=== PATIENT | male | born 1975 | race Caucasian/White ===

== ENCOUNTER 2017-10-13 22:55 | Emergency (ER) | payer SELFPAY ==
--- NOTE | 2017-10-13 23:33 | ER Document Report ---
ED Medical Screen (RME) - General Chief Complaint: S/S of Possible Stroke Stated Complaint: HEADACHE, RIGHT SIDE MOUTH NUMBNESS Time Seen by Provider: 10/13/17 23:30 Notes: 42 yo male who presents with 2 hours of a right facial droop and numbness with a dull right-sided headache. He has never had this before. Denies tick bites, rash, fevers, arm or leg weakness or numbness, ataxia or sensory loss. PE: Partial right facial droop. Able to wrinkle forehead. I have greeted and performed a rapid initial assessment of this patient. A comprehensive ED assessment and evaluation of the patient, analysis of test results and completion of the medical decision making process will be conducted by additional ED providers. TRAVEL OUTSIDE OF THE [place] IN LAST 30 DAYS: No
[2017-10-13] MEDS ORDERED: ESMOLOL HCL/SOD CL 2,500 MG/250 ML RTUINJ IV PRN (23:41)
[2017-10-13 23:50] LABS: PROTHROMBIN TIME 10.5 SEC (11.4-15.4)
[2017-10-13 23:51] LABS: PARTIAL THROMBOPLASTIN TIME 28.4 SEC (23.5-35.8)
--- NOTE | 2017-10-13 23:54 | RADIOLOGY REPORT (SQ) ---
EXAM DESCRIPTION: CT HEAD WITHOUT COMPLETED DATE/TIME: 10/13/2017 11:44 pm REASON FOR STUDY: right facial droop, able to wrinkle forehead COMPARISON: None. TECHNIQUE: Axial images acquired through the brain without intravenous contrast. Images reviewed wi th bone, brain and subdural windows. Images stored on PACS. All CT scanners at this facility use dose modulation, iterative reconstruction, and/or weight based d osing when appropriate to reduce radiation dose to as low as reasonably achievable (ALARA). [facility]: Dose Right [facility]: CareDose [facility]: Dose Right [facility]: Teradose 4D [facility]: Medaxion RADIATION DOSE: CT Rad equipment meets quality standard of care and radiation dose reduction techniq ues were employed. CTDIvol: 64.6 mGy. DLP: 1163 mGy-cm. mGy. LIMITATIONS: None. FINDINGS: VENTRICLES: Normal size and contour. CEREBRUM: No masses. No hemorrhage. No midline shift. No evidence for acute infarction. Normal gra y/white matter differentiation. No areas of low density in the white matter. CEREBELLUM: No masses. No hemorrhage. No alteration of density. No evidence for acute infarction. EXTRAAXIAL SPACES: No fluid collections. No masses. ORBITS AND GLOBE: No intra- or extraconal masses. Normal contour of globe without masses. CALVARIUM: No fracture. PARANASAL SINUSES: No fluid or mucosal thickening. SOFT TISSUES: No mass or hematoma. OTHER: No other significant finding. IMPRESSION: NORMAL BRAIN CT WITHOUT CONTRAST. EVIDENCE OF ACUTE STROKE: NO. COMMENT: Quality ID # [id number]: Final reports with documentation of one or more dose reduction techniques (e.g., Automated exposure control, adjustment of the mA and/or kV according to patient size, use of iterative reconstruction technique) TECHNICAL DOCUMENTATION: JOB ID: [id number]- All Rights Reserved
[2017-10-14 00:10] LABS: ABSOLUTE BASOPHILS # (AUTO) 0.1 10^3/uL (0.0-0.2); ABSOLUTE EOSINOPHILS # (AUTO) 0.1 10^3/uL (0.0-0.6); ABSOLUTE LYMPHOCYTES (AUTO) 2.9 10^3/uL (0.5-4.7); ABSOLUTE MONOCYTES (AUTO) 0.4 10^3/uL (0.1-1.4); ABSOLUTE NEUT (AUTO) 2.7 10^3/uL (1.7-8.2); BASOPHILS % (AUTO) 0.9 % (0-2); EOSINOPHILS % (AUTO) 1.7 % (0-6); HEMATOCRIT 44.1 % (37.9-51.0); LYMPHOCYTES % (AUTO) 46.6 % (13-45); MEAN CORPUSCULAR VOLUME 81 fl (80-97); MONOCYTES % (AUTO) 6.9 % (3-13); PLATELET COUNT 202 10^3/uL (150-450); RED BLOOD COUNT 5.45 10^6/uL (4.35-5.55); RED CELL DISTRIBUTION WIDTH 14.5 % (11.5-14.0); SEGMENTED NEUTROPHILS % (AUTO) 43.9 % (42-78); TOTAL CELLS COUNTED % (AUTO) 100 %; WHITE BLOOD COUNT 6.1 10^3/uL (4.0-10.5)
[2017-10-14 00:11] LABS: CALCIUM 9.6 mg/dL (8.4-10.2)
[2017-10-14 00:12] LABS: BLOOD UREA NITROGEN 14 mg/dL (7-20); CARBON DIOXIDE 23 mmol/L (22-30); CHLORIDE 98 mmol/L (98-107); GLUCOSE 255 mg/dL (75-110); POTASSIUM 4.5 mmol/L (3.6-5.0)
[2017-10-14 00:13] LABS: ALANINE AMINOTRANSFERASE 39 U/L (21-72); ALBUMIN 4.3 g/dL (3.5-5.0); ALKALINE PHOSPHATASE 79 U/L (38-126); ANION GAP 13 (5-19); ASPARTATE AMINO TRANSFERASE 50 U/L (17-59); BILIRUBIN,TOTAL 1.3 mg/dL (0.2-1.3)
[2017-10-14 00:14] LABS: CREATINE KINASE 66 U/L (55-170); TOTAL PROTEIN 7.4 g/dL (6.3-8.2)
[2017-10-14 00:20] LABS: HEMOGLOBIN 14.8 g/dL (13.5-17.0)
[2017-10-14 00:21] LABS: MEAN CORPUSCULAR HEMOGLOBIN 27.2 pg (27.0-33.4); MEAN CORPUSCULAR HGB CONC 33.5 g/dL (32.0-36.0)
--- NOTE | 2017-10-14 00:31 | ER Document Report ---
ED Neuro Symptoms/Deficit - General Mode of Arrival: Ambulatory Information source: Patient Notes: 42 year old male with history of diabetes with neuropathy, hypertension, and hyperlipidemia presents to the ED complaining of a headache that started a few days ago. Patient then developed decreased taste a few days ago in addition to his headache and then noticed right sided facial droop earlier this evening while brushing his teeth. Patient also notes having difficulty biting into his sandwich earlier this evening. Patient spoke with his who is a nurse and told him to come to the ED. Patient denies blurred vision, weakness, difficulty walking, or slurred speech. Patient reports bilateral lower extremity pain, but states this is not new. TRAVEL OUTSIDE OF THE [place] IN LAST 30 DAYS: No - HPI Patient complains to provider of: Facial Droop - right Onset: This evening Loss of consciousness: No loss of consciousness Was STROKE ALERT Called: Yes Baseline Cognitive: Alert, oriented X 3 Alert To: Name/Voice Patient Orientation: Person, Place, Time, Events New weakness: R facial Associated symptoms: Other - see notes above <NASREEN VASQUEZ - Last Filed: 10/14/17 01:03> <APRIL JANSEN - Last Filed: 10/14/17 02:37> - General Chief Complaint: S/S of Possible Stroke Stated Complaint: HEADACHE, RIGHT SIDE MOUTH NUMBNESS Time Seen by Provider: 10/13/17 23:30 - Related Data Allergies/Adverse Reactions: No Known Allergies Allergy (Unverified 10/13/17 23:58) Home Medications: Current Home Medications Lisinopril/Hydrochlorothiazide [Lisinopril-Hctz 10-12.5 mg Tab] 1 tab PO DAILY 10/13/17 [History] Metformin HCl 1,000 mg PO BID 10/13/17 [History] Rosuvastatin Calcium [Rosuvastatin Calcium] 10 mg PO DAILY 10/13/17 [History] Past Medical History - General Information source: Patient - Social History Smoking Status: Never Smoker Chew tobacco use (# tins/day): No Frequency of alcohol use: Social Drug Abuse: None Family History: Reviewed & Not Pertinent. denies: CAD, CVA Patient has suicidal ideation: No Patient has homicidal ideation: No - Past Medical History Cardiac Medical History: Reports: Hx Hypercholesterolemia, Hx Hypertension Endocrine Medical History: Reports: Hx Diabetes Mellitus Type 2 Renal/ Medical History: Denies: Hx Peritoneal Dialysis <NASREEN VASQUEZ - Last Filed: 10/14/17 01:03> Review of Systems - Review of Systems Constitutional: No symptoms reported EENT: No symptoms reported. denies: Blurred vision Cardiovascular: No symptoms reported Respiratory: No symptoms reported Gastrointestinal: No symptoms reported Genitourinary: No symptoms reported Male Genitourinary: No symptoms reported Musculoskeletal: No symptoms reported Skin: No symptoms reported Hematologic/Lymphatic: No symptoms reported Neurological/Psychological: See HPI, Other - right sided facial droop. denies: Weakness, Gait changes, Speech impairment -: Yes All other systems reviewed and negative <NASREEN VASQUEZ - Last Filed: 10/14/17 01:03> Physical Exam - Vital signs Vitals: Temp Pulse Resp BP Pulse Ox 97.9 F 80 18 154/101 H 97 10/13/17 23:13 10/13/17 23:13 10/13/17 23:13 10/13/17 23:13 10/13/17 23:13 - Notes Notes: GENERAL: Alert, interacts well. No acute distress. HEAD: Atraumatic. Right sided facial droop that is not normalized with smiling. Able to open and close both eyes. Patient not able to scrunch right eyebrow as fully as left. Sensation is intact. EYES: Pupils equal, round, and reactive to light. Extraocular movements intact. ENT: Oral mucosa moist, tongue midline. NECK: Full range of motion. Supple. Trachea midline. LUNGS: Clear to auscultation bilaterally, no wheezes, rales, or rhonchi. No respiratory distress. HEART: Regular rate and rhythm. No murmurs, gallops, or rubs. ABDOMEN: Soft, non-tender. Non-distended. Bowel sounds present in all 4 quadrants. EXTREMITIES: Moves all 4 extremities spontaneously. No edema, radial and dorsalis pedis pulses 2/4 bilaterally. No cyanosis. NEUROLOGICAL: Alert and oriented x3. Normal speech. Biceps and patellar DTRs 2+ bilaterally. Pvibix-de-raka and lmco-mc-lqgg tests normal. See head exam above. PSYCH: Normal affect, normal mood. SKIN: Warm, dry, normal turgor. No rashes or lesions noted. <NASREEN VASQUEZ - Last Filed: 10/14/17 01:03> - Vital signs Vitals: Temp Pulse Resp BP Pulse Ox 97.9 F 80 18 154/101 H 97 10/13/17 23:13 10/13/17 23:13 10/13/17 23:13 10/13/17 23:13 10/13/17 23:13 <APRIL JANSEN - Last Filed: 10/14/17 02:37> Course - Vital Signs Vital signs: Temp Pulse Resp BP Pulse Ox 97.9 F 80 23 H 137/93 H 97 10/13/17 23:13 10/13/17 23:13 10/13/17 23:46 10/13/17 23:46 10/13/17 23:46 - Laboratory Result Diagrams: 10/13/17 23:35 10/13/17 23:35 Laboratory results interpreted by me: 10/13/17 10/13/17 10/13/17 23:35 23:35 23:35 RDW 14.5 H Lymphocytes % 46.6 H PT 10.5 L Sodium 134.0 L Glucose 255 H Direct Bilirubin 1.0 H <NASREEN VASQUEZ - Last Filed: 10/14/17 01:03> - Re-evaluation Re-evalutation: 10/14/17 00:39 Blood is grossly lipemic, CBC grossly unremarkable, coags normal, CMP shows elevated glucose consistent with his history of uncontrolled diabetes. Patient is planning on restarting his medications today, has actually planned to get a follow-up appointment on Sunday or Sunday with a primary care physician but has not found a primary care physician yet. CT scan of the head does not show any acute or old infarction, no evidence of bleeding. Examination is more consistent with Shaikh's palsy than a stroke, symptoms are isolated to cranial nerve VII. He does not have total sparing of the forehead muscles however he is not able to squeeze his right eyebrow completely shot though the eyelid does shot. Discussed with patient that I cannot 100% rule out a stroke however this is more consistent with Shaikh's palsy. Patient will be discharged home with steroids and antivirals. Follow-up with primary care physician as an outpatient. 10/14/17 00:45 The slow progression over 3-4 days with associated loss of taste on the right side of his tongue is much more consistent with Shaikh's palsy than an acute CVA. - Vital Signs Vital signs: Temp Pulse Resp BP Pulse Ox 97.9 F 80 23 H 137/93 H 97 10/13/17 23:13 10/13/17 23:13 10/13/17 23:46 10/13/17 23:46 10/13/17 23:46 - Laboratory Result Diagrams: 10/13/17 23:35 10/13/17 23:35 Laboratory results interpreted by me: 10/13/17 10/13/17 10/13/17 23:35 23:35 23:35 RDW 14.5 H Lymphocytes % 46.6 H PT 10.5 L Sodium 134.0 L Glucose 255 H Direct Bilirubin 1.0 H <APRIL JANSEN - Last Filed: 10/14/17 02:37> ED [employer]/Exc Criteria ED NIH Stroke Scale - NIH Stroke Scale When completed:: Before Alteplase *: 1. NIH scale should be completed with appropriate accompanying assessment tools. *: 2. The NIH should reflect what the patient is capable of doing and should not be coached by the clinician. 1a. Level of Consciousness: 0=Alert;keenly responsive -: 1=Drowsy -: 2=Obtunded -: 3=Coma/unresponsive or reflex to noxious stimuli. 1a. Responses: 0 1b. Orientation Questions: a. What month is it? -: b. How old are you? -: 0=Answers both questions correctly. -: 1=Answers one question correctly or patient is intubated or has orotracheal trauma. -: 2=Answers neither question correctly. 1b. Responses: 0 1c. Response to commands: a. Open and close eyes? -: b. Wrist Liner and release hand? -: Credit is given despite weakness. Demonstration of task is permitted. Substitute command if hands cannot be used. -: 0=Performs both tasks correctly -: 1=Performs one task correctly -: 2=Performs neither task correctly 1c. Responses: 0 2. Gaze: Establish eye contact and instruct patient to "Follow my finger" -: 0=Normal -: 1=Partial gaze palsy. Gaze is abnormal in one or both eyes, but where forced deviation or total gaze paresis is not present. -: 2=Forced deviation or total gaze paresis. 2. Responses: 0 3. Visual Lucas: Sees fingers in all four quadrants. -: 0=No visual loss. -: 1=Partial hemianopsia. -: 2=Complete hemianopsia. -: 3=Bilateral hemianopsia (including Cortical blindness) 3. Responses: 0 4. Facial Movement: Instruct patient to: -: a. Show me your teeth -: b. Raise your eyebrows -: c. Close your eyes -: d. Smile -: 0=Normal symmetrical movement -: 1=Minor paralysis (flattened nasolabial fold, asymmetry on smiling). -: 2=Partial paralysis (total or near total paralysis of lower face). -: 3=Complete paralysis of upper and lower face 4. Responses: 1 5. Motor functions (left arm): Alternate sides and extend each arm with palms down (90 degrees if sitting or 45 degrees for supine). -: 0=No drift;limb holds for full 10 seconds. -: 1=Drift; limb holds but drifts down before full 10 seconds, but does not hit bed. -: 2=Some effort against gravity; limb cannot get to or maintain position. -: 3=No effort against gravity; limb falls. -: 4=No movement. -: UN=Amputation, joint fusion, explain in comments. 5. Responses (left arm): 0 5. Motor Functions (right arm): Alternate sides and extend each arm with palms down (90 degrees if sitting or 45 degrees for supine). -: 0=No drift;limb holds for full 10 seconds. -: 1=Drift; limb holds but drifts down before full 10 seconds, but does not hit bed. -: 2=Some effort against gravity; limb cannot get to or maintain position. -: 3=No effort against gravity; limb falls. -: 4=No movement. -: UN=Amputation, joint fusion, explain in comments. 5. Responses (right arm): 0 6. Motor Functions (left leg): With patient lying supine, alternate sides and extend each leg (30 degrees always while supine). -: 0=No drift, leg holds position for full 5 seconds -: 1=Drift; leg falls before full 5 seconds but does not hit bed. -: 2=Some effort against gravity, leg falls to bed but some effort against gravity. -: 3=No effort against gravity, leg falls to bed immediately. -: 4=No movement. -: UN=Amputation, joint fusion; explain in comments. 6. Responses (left leg): 0 6. Motor Functions (right leg): With patient lying supine, alternate sides and extend each leg (30 degrees always while supine). -: 0=No drift, leg holds position for full 5 seconds -: 1=Drift; leg falls before full 5 seconds but does not hit bed. -: 2=Some effort against gravity, leg falls to bed but some effort against gravity. -: 3=No effort against gravity, leg falls to bed immediately. -: 4=No movement. -: UN=Amputation, joint fusion; explain in comments. 6. Responses (right leg): 0 7. Limb Ataxia: With eyes open instruct patient to: -: a. "Touch your finger to your nose". -: b. "Touch your heel to your morales" -: 0=Absent -: 1=Present in one limb. -: 2=Present in two limbs. -: UN=Amputation or joint fusion; explain in comments. 7. Responses: 0 8. Sensory: Test sensation using pinprick or noxious stimuli. Test as many body parts as possible. -: 0=Normal;no sensory loss -: 1=Mile to moderate sensory loss (patient feels pin prick but is less sharp on affected side). -: 2=Severe or total sensory loss. 8. Responses: 0 9. Best Language: Instruct patient to: -: a. "Describe what you see in this picture." -: b. "Name the items in this picture." -: c. "Read these sentences." -: 0=No aphasia, normal -: 1=Mild to moderate aphasia. -: 2=Severe aphasia -: 3=Mute, global aphasia, no usable speech or auditory comprehension. 9. Responses: 0 10. Articulation, Dysarthia: Instruct patient to: -: "Read these words" or "Repeat these words" -: 0=Normal -: 1=Mild to moderate; patient may slur some words but can be understood without difficulty. -: 2=Severe; patients speech so slurred as to be unintelligible in the absence of dysphasia. -: UN=Intubated or other physical barrier, explain in comments. 10. Responses: 0 11. Extinction or inattention: 0=No abnormality -: 1= Visual, tactile, auditory, spatial, or personal inattention or extinction to bilateral simulation in one or the sensory modalities. -: 2=Profound cassia-inattention or cassia-inattention to more than one modality; does not recognize own hand. 11. Responses: 0 Total Score: 1 <NASREEN VASQUEZ - Last Filed: 10/14/17 01:03> Discharge <NASREEN VASQUEZ - Last Filed: 10/14/17 01:03> - Discharge Scribe Attestation: 10/14/17 02:37 I personally performed the services described in the documentation, reviewed and edited the documentation which was dictated to the scribe in my presence, and it accurately records my words and actions. <APRIL JANSEN - Last Filed: 10/14/17 02:37> - Discharge Clinical Impression: Shaikh's palsy Hypertension Qualifiers: Hypertension type: unspecified Qualified Code(s): I10 - Essential (primary) hypertension Type 2 diabetes mellitus Qualifiers: Diabetes mellitus complication status: with hyperglycemia Diabetes mellitus snf insulin use: with snf use Qualified Code(s): E11.65 - Type 2 diabetes mellitus with hyperglycemia Condition: Stable Disposition: HOME, SELF-CARE Additional Instructions: Maddock' Palsy You have been diagnosed as having Shaikh's Palsy -- a paralysis of certain muscles of the face. It's caused by a temporary paralysis of the nerve which controls the muscles. The cause is unknown, but it's thought to be caused by a virus in most cases. The physician's exam shows that this is NOT a stroke. Shaikh's Palsy usually gets better by itself. There is no cure. Sometimes cortisone-type medication is given to decrease nerve swelling. This problem is usually temporary, lasting about three weeks. During that time, you must protect the eye from injury (because the eyelid muscles often do not cover it). Ointment or a patch may be necessary. Be sure to follow up as instructed, and call the doctor at once if new symptoms arise. Report any eye pain, decreasing vision or double vision, or any numbness or weakness outside the face area. Prescriptions: Gabapentin [Neurontin 100 mg Capsule] 100 mg PO Q12 #60 capsule Prednisone [Deltasone 20 mg Tablet] 3 tab PO DAILY 5 Days tablet Valacyclovir HCl [Valacyclovir] 1,000 mg PO TID #21 tablet Forms: Elevated Blood Pressure Referrals: PUMA POTTS MD [ACTIVE STAFF] - Follow up in 3-5 days Scribe Documentation - Scribe Written by Scribe:: Paolo Otero, 10/14/2017 0119 acting as scribe for :: Rodrigo <NASREEN VASQUEZ - Last Filed: 10/14/17 01:03>
[2017-10-14 00:54] VITALS: BP 142/90
--- NOTE | 2017-10-14 17:28 | EKG REPORT ---
SEVERITY:- BORDERLINE ECG - SINUS RHYTHM BORDERLINE LEFT AXIS DEVIATION BORDERLINE R WAVE PROGRESSION, ANTERIOR LEADS : Confirmed by: Kenton Li 14-Oct-2017 12:20:41
== END 2017-10-14 01:08 | disposition home or self-care (01) ==
LOC: ER 22:55
DX: G51.0 Bell's palsy (principal); E11.65 Type 2 diabetes mellitus with hyperglycemia; I10 Essential (primary) hypertension; E11.40 Type 2 diabetes mellitus with diabetic neuropathy, unspecified; E78.5 Hyperlipidemia, unspecified; R51 Headache; R29.810 Facial weakness; R20.0 Anesthesia of skin; Z79.899 Other long term (current) drug therapy; R29.701 NIHSS score 1
CPT/HCPCS: 36415; 70450; 80053; 82550; 84484; 85025; 85610; 85730; 93005; 93010; 99285

== ENCOUNTER 2020-03-05 22:03 | Emergency (ER) | payer BC, OTHER ==
[2020-03-06 00:07] LABS: ABSOLUTE EOSINOPHILS # (AUTO) 0.1 10^3/uL (0.0-0.6); ABSOLUTE LYMPHOCYTES (AUTO) 1.9 10^3/uL (0.5-4.7); ABSOLUTE MONOCYTES (AUTO) 0.4 10^3/uL (0.1-1.4); BASOPHILS % (AUTO) 0.5 % (0-2); EOSINOPHILS % (AUTO) 1.2 % (0-6); HEMATOCRIT 41.1 % (37.9-51.0); HEMOGLOBIN 14.6 g/dL (13.5-17.0); LYMPHOCYTES % (AUTO) 35.6 % (13-45); MEAN CORPUSCULAR HEMOGLOBIN 29.3 pg (27.0-33.4); MEAN CORPUSCULAR HGB CONC 35.6 g/dL (32.0-36.0); MEAN CORPUSCULAR VOLUME 82 fl (80-97); MONOCYTES % (AUTO) 8.1 % (3-13); PLATELET COUNT 151 10^3/uL (150-450); RED CELL DISTRIBUTION WIDTH 14.4 % (11.5-14.0); SEGMENTED NEUTROPHILS % (AUTO) 54.6 % (42-78); TOTAL CELLS COUNTED % (AUTO) 100 %; WHITE BLOOD COUNT 5.5 10^3/uL (4.0-10.5)
[2020-03-06 00:25] LABS: ALBUMIN 3.9 g/dL (3.5-5.0); ALKALINE PHOSPHATASE 63 U/L (38-126); ANION GAP 9 (5-19); ASPARTATE AMINO TRANSFERASE 21 U/L (17-59); BILIRUBIN,TOTAL 0.6 mg/dL (0.2-1.3); BLOOD UREA NITROGEN 20 mg/dL (7-20); CALCIUM 9.7 mg/dL (8.4-10.2); CARBON DIOXIDE 24 mmol/L (22-30); CHLORIDE 101 mmol/L (98-107); GLUCOSE 269 mg/dL (75-110); POTASSIUM 3.8 mmol/L (3.6-5.0); TOTAL PROTEIN 6.7 g/dL (6.3-8.2)
--- NOTE | 2020-03-06 01:55 | ER Document Report ---
ED General - General Chief Complaint: Abnormal Lab Results Stated Complaint: LOW SODIUM ([address]) Information source: Patient TRAVEL OUTSIDE OF THE [place] IN LAST 30 DAYS: No - HPI Notes: 44-year-old male history of diabetes presents with serum sodium of 114 referred to ED by PCP on labs drawn a few days ago. Patient has been feeling completely well recently and had labs drawn as part of annual physical with PCP. Patient denies all symptoms. - Related Data Allergies/Adverse Reactions: No Known Allergies Allergy (Unverified 10/13/17 23:58) Home Medications: finfibrate, gabapentin, metformin. Past Medical History - General Information source: Patient - Social History Smoking Status: Never Smoker Family History: Reviewed & Not Pertinent. denies: CAD, CVA Patient has homicidal ideation: No - Past Medical History Cardiac Medical History: Reports: Hx Hypercholesterolemia, Hx Hypertension Endocrine Medical History: Reports: Hx Diabetes Mellitus Type 2 Renal/ Medical History: Denies: Hx Peritoneal Dialysis Review of Systems - Review of Systems Notes: REVIEW OF SYSTEMS: CONSTITUTIONAL : Denies fever, chills, or sweats. EENT: Denies recent cold/sinus symptoms, denies throat pain CARDIOVASCULAR: Denies chest pain, MONCHO RESPIRATORY: Denies cough, denies shortness of breath. GASTROINTESTINAL: Denies abdominal pain, nausea/vomiting. GENITOURINARY: Denies difficulty urinating, painful urination. MUSCULOSKELETAL: Denies neck pain, back pain. SKIN: Denies rash or skin lesions. HEMATOLOGIC : Denies easy bruising or bleeding. LYMPHATIC: Denies swollen, enlarged glands. NEUROLOGICAL: Denies headache, denies change in gait. PSYCHIATRIC: Denies anxiety or stress or depression. Physical Exam - Vital signs Vitals: Temp Pulse Resp BP Pulse Ox 98.4 F 94 18 181/96 H 97 03/05/20 22:09 03/05/20 22:09 03/05/20 22:09 03/05/20 22:09 03/05/20 22:09 - Notes Notes: PHYSICAL EXAMINATION: GENERAL: Well-appearing, well-nourished and in no acute distress. HEAD: Atraumatic, normocephalic. EYES: Pupils equal round and appropriate constriction, sclera anicteric, conjunctiva are normal. ENT: nares patent, mildly dry mucous membranes. NECK: Normal range of motion, supple LUNGS: Normal respiratory rate and effort, speaking in full sentences HEART: Regular rate, no JVD EXTREMITIES: Normal range of motion, moves all extremities spontaneously NEUROLOGICAL: Awake, alert, conversing appropriately PSYCH: Normal mood, normal affect. SKIN: Warm, Dry, normal turgor, no rashes or lesions noted. Course - Re-evaluation Re-evalutation: 03/06/20 01:58 Patient referred to ED by PCP for asymptomatic low sodium on routine labs. Sodium here 134, unlikely that sodium increased by 20 in few days without any interventions most likely initial lab error. Patient feels completely well, hyp erglycemic without elevated anion gap, encouraged p.o. hydration and close follow-up with PCP which patient says he will do. Gave return to ED precautions which patient demonstrated understanding of, ready for discharge. - Vital Signs Vital signs: Temp Pulse Resp BP Pulse Ox 98.4 F 94 18 181/96 H 97 03/05/20 23:14 03/05/20 22:09 03/05/20 22:09 03/05/20 22:09 03/05/20 22:09 - Laboratory Result Diagrams: 03/05/20 23:43 03/05/20 23:43 Laboratory results interpreted by me: 03/05/20 03/05/20 23:43 23:43 RDW 14.4 H Sodium 134.3 L Glucose 269 H Discharge - Discharge Clinical Impression: Abnormal laboratory test result, Hyperglycemia Condition: Good Disposition: HOME, SELF-CARE Additional Instructions: Hyperglycemia (High Blood Sugar) You have an abnormally high blood sugar. Not all high blood sugar requires long-term treatment. High blood sugar can be due to medications, , or the stress of illness. (These cases are "borderline diabetes.") If the doctor feels your high blood sugar might resolve with time, you may not require treatment now. It's very important that you follow through with your primary doctor, to see if the blood sugar returns to normal levels. Uncontrolled high blood sugar leads to early heart disease, strokes, nerve damage, eye damage, and kidney damage. Call the physician if there is faintness, excess sleepiness, or very rapid breathing. Return to ED immediately if you have weakness, confusion, vomiting, seizure, fainting, or any other alarming symptoms. Follow-up with your primary doctor within 1 week.
[2020-03-06 02:26] VITALS: BP 163/94
== END 2020-03-06 02:28 | disposition home or self-care (01) ==
LOC: ER 22:03
DX: R94.8 Abnormal results of function studies of other organs and systems (principal); E11.65 Type 2 diabetes mellitus with hyperglycemia; I10 Essential (primary) hypertension; E78.00 Pure hypercholesterolemia, unspecified; Z79.84 Long term (current) use of oral hypoglycemic drugs
CPT/HCPCS: 36415; 80053; 85025; 99283